=== PATIENT | male | born 1975 | race Caucasian/White ===

== ENCOUNTER → 2019-12-04 | Emergency (ER) | payer MEDICARE, OTHER ==
[~2019-12-04] VITALS: Ht 170.2 cm; Wt 90.9 kg
[~2019-12-04] MED LIST: BENZTROPINE MESY2 MG PO; CELEXA20 MG PO; DEPAKOTE250 MG PO; FISH OIL 1,0001 CA1 PO; INDERAL 40 MG T40 MG PO; LEVAQUIN500 MG PO; PRILOSEC20 MG PO; ZYPREXA20 MG PO
[2019-12-04 14:26] VITALS: Ht 170.2 cm; Wt 90.9 kg
[2019-12-04 15:01] LABS: BASOPHILS 0.2 % (0-2); EOSINOPHILS 1.6 % (0-7); HEMATOCRIT 39.8 % (42.0-54.0); HEMOGLOBIN 13.2 g/dL (13.5-17.5); IMMATURE GRANULOCYTES 0.4 % (0-5); LYMPHOCYTES 45.9 % (15-50); MCH 32.8 pg (26.0-34.0); MCHC 33.2 g/dL (31.0-37.0); MEAN PLATELET VOLUME 10.6 fL (7.4-10.4); MONOCYTES 10.3 % (2-11); NEUTROPHILS 41.6 % (40-80); RBC 4.02 10x6/uL (4.20-6.10); RDW 13.2 % (11.5-14.5); WBC 5.1 10x3/uL (4.8-10.8)
[2019-12-04 15:09] LABS: PLATELET COUNT 147 10x3/uL (130-400)
[2019-12-04 15:13] LABS: CALC OSMOLALITY 274 mosm/kg (275-300); CALCIUM 8.8 mg/dL (8.5-10.1); CARBON DIOXIDE 29.7 mmol/L (21.0-32.0); CHLORIDE - SERUM 103 mmol/L (98-107); CREATININE - SERUM 0.9 mg/dL (0.6-1.3); POTASSIUM - SERUM 4.1 mmol/L (3.5-5.1); SODIUM 137 mmol/L (136-145); UREA NITROGEN 8 mg/dL (7-18); eGFR NON AFRICAN AMERICAN > 90 mL/min (90-120)
[2019-12-04 15:14] LABS: GLUCOSE 149 mg/dL (74-106)
[2019-12-04 15:20] LABS: ALBUMIN 3.8 g/dL (3.4-5.0); ALKALINE PHOSPHATASE 41 U/L (30-120); ALT (SGPT) 24 U/L (10-68); BILIRUBIN - TOTAL 0.23 mg/dL (0.2-1.3); MAGNESIUM - SERUM 1.7 mg/dL (1.8-2.4); PROTEIN - SERUM 7.3 g/dL (6.4-8.2)
[2019-12-04 17:19] LABS: BILIRUBIN NEGATIVE (NEGATIVE); GLUCOSE NEGATIVE (NEGATIVE); KETONE NEGATIVE (NEGATIVE); NITRITE NEGATIVE (NEGATIVE); UROBILINOGEN NORMAL (NORMAL)
[2019-12-04 17:29] LABS: UDS - AMPHET NEGATIVE QUAL (NEGATIVE); UDS - BARB NEGATIVE QUAL (NEGATIVE); UDS - BENZO NEGATIVE QUAL (NEGATIVE); UDS - COCAINE NEGATIVE QUAL (NEGATIVE); UDS - OPIATE NEGATIVE QUAL (NEGATIVE); UDS - PCP NEGATIVE QUAL (NEGATIVE); UDS - THC NEGATIVE QUAL (NEGATIVE)
[2019-12-04 23:36] VITALS: BP 125/70
== END ==
LOC: D.ER 14:22
PROVIDERS: Family Medicine
DX: R45.4 Irritability and anger (principal); F31.9 Bipolar disorder, unspecified; R45.1 Restlessness and agitation